=== PATIENT | female | born 1955 | race Caucasian/White ===

== ENCOUNTER 2016-07-25 18:15 | Emergency (ER) | payer BC ==
[2016-07-25 18:25] VITALS: BP 155/89; PULSE 86; TEMP 98.3; BMI 23.3
[2016-07-25] MEDS ORDERED: CEPHALEXIN MONOHYDRATE 500 MG CAPSULE (UD) PO ONE (19:11)
[2016-07-25] MEDS ORDERED: CEPHALEXIN MONOHYDRATE 500 MG CAPSULE (UD) ONE (19:13)
--- NOTE | 2016-07-25 19:21 | PDOC ---
History of Present Illness - General Chief Complaint: Edema Stated Complaint: SWOLLEN FINGER Time Seen by Provider: 07/25/16 19:07 History Source: Patient Exam Limitations: No Limitations - History of Present Illness Initial Comments: 07/25/16 19:16 c/o 3 days swollen left middle finger tip at cuticle. Pt states she went to the nail salon one week ago and may have sustained a cut to the cuticle. 07/25/16 19:17 Severity: reports: mild Upper Extremity Pain Location: left: 3rd finger Past History - Past Medical History Allergies/Adverse Reactions: Allergies Allergy/AdvReac Type Severity Reaction Status Date / Time No Known Allergies Allergy Verified 07/25/16 18:25 Home Medications: Ambulatory Orders Cephalexin Monohydrate [Keflex -] 250 mg PO Q6H #28 capsule 07/25/16 Insulin (Levemir) [Levemir Vial] 100 unit SQ ASDIR 07/25/16 Metformin HCl [Metformin HCl ER] 1,000 mg PO ASDIR 07/25/16 Diabetes: Yes HTN: Yes - Psycho/Social/Smoking Cessation Hx Suicidal Ideation: No Smoking History: Never smoked Hx Alcohol Use: No Drug/Substance Use Hx: No Review of Systems - Review of Systems Able to Perform ROS?: Yes Is the patient limited Tajik proficient: No Constitutional: No: Symptoms Reported HEENTM: No: Symptoms Reported Respiratory: No: Symptoms reported Cardiac (ROS): No: Symptoms Reported ABD/GI: No: Symptoms Reported : No: Symptoms Reported Musculoskeletal: No: Symptoms Reported Integumentary: Yes: See HPI *Physical Exam - Vital Signs Last Vital Signs Temp Pulse Resp BP Pulse Ox 98.3 F 86 18 155/89 97 07/25/16 18:22 07/25/16 18:22 07/25/16 18:22 07/25/16 18:22 07/25/16 18:22 - Physical Exam General Appearance: Yes: Nourished, Appropriately Dressed HEENT: positive: EOMI, HUAN Neck: positive: Supple Respiratory/Chest: positive: Lungs Clear, Normal Breath Sounds Cardiovascular: positive: Regular Rhythm, Regular Rate Musculoskeletal: positive: Normal Inspection Extremity: positive: Normal Capillary Refill, Normal Range of Motion, Tender, Erythema (distal left 3rd digit erythema around the cuticle, no fluctuance) Integumentary: positive: Normal Color, Dry, Warm Neurologic: positive: Fully Oriented, Alert, Normal Mood/Affect, Normal Response , Motor Strength 08/08 Procedures - Additional Procedures Progress: 07/25/16 19:18 warm betadine soak for 15 minutes ED Treatment Course - Medications Given in the ED: ED Medications Discontinued Medications Generic Name Dose Route Start Last Admin Trade Name Jerod PRN Reason Stop Dose Admin Cephalexin HCl 500 mg 07/25/16 19:11 07/25/16 19:15 Keflex - PO 07/25/16 19:12 500 mg ONCE ONE Administration Medical Decision Making - Medical Decision Making 07/25/16 19:18 cc: redness and pain with swelling to left middle finger tip no fluctuance no evidence of paronychia however swollen and red and painful will place on keflex and warm soaks strict follow up in 2 days *DC/Admit/Observation/Transfer Diagnosis at time of Disposition: Cellulitis, finger Qualifiers: Laterality: left Qualified Code(s): L03.012 - Cellulitis of left finger - Discharge Dispostion Disposition: HOME Condition at time of disposition: Good - Prescriptions Prescriptions: Cephalexin Monohydrate [Keflex -] 250 mg PO Q6H #28 capsule - Patient Instructions Additional Instructions: soak finger in warm to hot water with antibacterial dish soap 4 times a day for 10-15 minutes keep dry after soaking take the antibiotics as prescribed take motrin for pain return to ER in 2 days for a wound check
== END 2016-07-25 19:26 | disposition home or self-care (01) ==
LOC: JERFT 18:15
DX: L03.012 Cellulitis of left finger (principal); I10 Essential (primary) hypertension; E11.9 Type 2 diabetes mellitus without complications; Z79.84 Long term (current) use of oral hypoglycemic drugs
CPT/HCPCS: 99281-25

== ENCOUNTER 2016-07-27 10:08 | Emergency (ER) | payer BC ==
[2016-07-27 10:15] VITALS: BP 145/83; PULSE 90; TEMP 97.7; BMI 23.6
[2016-07-27] MEDS ORDERED: CEPHALEXIN MONOHYDRATE 500 MG CAPSULE (UD) PO ONE (10:56)
--- NOTE | 2016-07-27 11:01 | PDOC ---
[id number]: REVISIT/ FOLLLOW-UP Time Seen by Provider: 07/27/16 10:41 History Source: Patient, Family (daughter) Exam Limitations: Language Barrier (daughter translating) - History of Present Illness Initial Comments: 07/27/16 10:54 61 yr female seen in ER 2 days ago for finger infection. Pt was placed on antibiotics however pt has not filled them yet. Pt was told to return today for wound check. Pt reports increased pain and swelling, pt was also cleaning with peroxide (dc inst said soap and water) . Pt has no fever, no streaking up the finger. Occurred: reports: last week Severity: reports: mild Upper Extremity Pain Location: left: 3rd finger Past History - Past Medical History Allergies/Adverse Reactions: Allergies Allergy/AdvReac Type Severity Reaction Status Date / Time metoclopramide HCl Allergy Severe "almost Verified 07/27/16 10:11 [From Anu] " Home Medications: Ambulatory Orders Cephalexin Monohydrate [Keflex -] 250 mg PO Q6H #28 capsule 07/25/16 Insulin (Levemir) [Levemir Vial] 100 unit SQ ASDIR 07/25/16 Metformin HCl [Metformin HCl ER] 1,000 mg PO ASDIR 07/25/16 Cephalexin Monohydrate [Keflex -] 250 mg PO Q6H #28 capsule 07/27/16 Diabetes: Yes HTN: Yes - Surgical History Abdominal Surgery: Yes - Psycho/Social/Smoking Cessation Hx Suicidal Ideation: No Smoking History: Never smoked Hx Alcohol Use: No Drug/Substance Use Hx: No Substance Use Type: None Review of Systems - Review of Systems Able to Perform ROS?: Yes Is the patient limited Belarusian proficient: No Constitutional: No: Symptoms Reported HEENTM: No: Symptoms Reported Respiratory: No: Symptoms reported Cardiac (ROS): No: Symptoms Reported ABD/GI: No: Symptoms Reported : No: Symptoms Reported Musculoskeletal: No: Symptoms Reported Integumentary: Yes: See HPI *Physical Exam - Vital Signs Last Vital Signs Temp Pulse Resp BP Pulse Ox 97.7 F 90 18 145/83 98 07/27/16 10:11 07/27/16 10:11 07/27/16 10:11 07/27/16 10:11 07/27/16 10:11 - Physical Exam General Appearance: Yes: Nourished, Appropriately Dressed HEENT: positive: EOMI, HUAN Neck: positive: Supple. negative: Tender Respiratory/Chest: positive: Lungs Clear Cardiovascular: positive: Regular Rhythm, Regular Rate Gastrointestinal/Abdominal: positive: Normal Bowel Sounds, Soft Musculoskeletal: positive: Normal Inspection Extremity: positive: Normal Capillary Refill, Normal Inspection, Normal Range of Motion Integumentary: positive: Normal Color, Dry, Warm, Other (paronychia left middle finger digit ) Neurologic: positive: Fully Oriented, Alert, Normal Mood/Affect, Normal Response , Motor Strength 5/5 Procedures - Incision and Drainage I&D Site: Left: Paronychia (third finger ) Betadine cleansed: Yes Blade Size: 11 Attempts: 1 Dressing: Yes Medical Decision Making - Medical Decision Making 07/27/16 11:26 cc: paronychia left third digit I&D done scant amount of pus returned with blood bacitracin and bandaid placed strict follow up with the plastic surgeon Dr. Farrell for follow up *DC/Admit/Observation/Transfer Diagnosis at time of Disposition: Paronychia Qualifiers: Laterality: left Qualified Code(s): L03.012 - Cellulitis of left finger - Discharge Dispostion Disposition: HOME Condition at time of disposition: Good - Prescriptions Prescriptions: Cephalexin Monohydrate [Keflex -] 250 mg PO Q6H #28 capsule - Referrals Referrals: Boyd Stevens MD, MD [Primary Care Provider] - Av Farrell MD [Staff Physician] - - Patient Instructions Additional Instructions: please soak the finger in WARM WATER only twice a day for 15 minutes apply bacitracin or neosporin ointment and cover with bandaid take the antibiotics as directed Please follow with the hand surgeon call thursday to make a follow up appointment for next week, this is important for follow up if any worsening symptoms return to ER
[2016-07-27] MEDS ORDERED: CEPHALEXIN MONOHYDRATE 500 MG CAPSULE (UD) ONE (11:02)
== END 2016-07-27 11:06 | disposition home or self-care (01) ==
LOC: SUPCPDRO 10:08 → JERFT 10:08
PROC: 0H9GXZZ Drainage of Left Hand Skin, External Approach (ICD-10-PCS; principal; 2016-07-27)
DX: L03.012 Cellulitis of left finger (principal); I10 Essential (primary) hypertension; E11.9 Type 2 diabetes mellitus without complications; Z79.4 Long term (current) use of insulin; Z79.84 Long term (current) use of oral hypoglycemic drugs
CPT/HCPCS: 99281-25